=== PATIENT | female | born 1995 ===

== ENCOUNTER 2022-10-07 15:07 | Inpatient (IN) | payer BC, OTHER ==
[2022-10-07] MEDS ORDERED: Lidocaine 1% 50 ML MDV INJECT PRN (15:34)
[2022-10-07] MEDS ORDERED: Nalbuphine 10 MG/0.5 ML Syringe IVPUSH PRN (15:34)
[2022-10-07] MEDS ORDERED: Oxytocin/Lactated Ringers 10 UNIT/1,000 ML BAG IV SCH ×2 (15:45)
[2022-10-07 16:12] LABS: BASOPHILS ABSOLUTE AUTO 0.02 K/mm3 (0.01-0.08); BASOPHILS PERCENT AUTO 0.1 % (0.1-1.2); EOSINOPHILS ABSOLUTE AUTO 0.01 K/mm3 (0.04-0.36); EOSINOPHILS PERCENT AUTO 0.1 (0.7-5.8); HEMOGLOBIN 11.2 gm/dl (11.2-15.7); IMMATURE GRAN ABSOLUTE AUTO 0.07 K/mm3 (0.00-0.10); IMMATURE GRAN PERCENT AUTO 0.5 % (<=1.0); LYMPHOCYTES ABSOLUTE AUTO 2.07 K/mm3 (1.18-3.74); LYMPHOCYTES PERCENT AUTO 14.1 % (19.3-51.7); MEAN CORPUSCULAR HGB CONC 31.1 g/dl (32.2-35.5); MEAN CORPUSCULAR VOLUME 80.4 fl (79.4-94.8); MEAN PLATELET VOLUME 11.3 fl (9.4-12.3); MONOCYTES PERCENT AUTO 6.1 % (4.7-12.5); NEUTROPHILS ABSOLUTE AUTO 11.63 K/mm3 (1.56-6.13); NEUTROPHILS PERCENT AUTO 79.1 % (34.0-71.1); PLATELET COUNT,PLT 303 K/mm3 (182-369); RED BLOOD CELL COUNT 4.48 M/mm3 (3.98-5.22)
[2022-10-07] MEDS ORDERED: Misoprostol 25 MCG (1/4 of 100 MCG) Tab VAG SCH (17:00)
[2022-10-07] MEDS: Misoprostol 25 MCG (1/4 of 100 MCG) Tab VAG SCH ×2 (18:42→20:24)
[2022-10-08] MEDS: Misoprostol 25 MCG (1/4 of 100 MCG) Tab VAG SCH ×2 (00:28→04:16)
[2022-10-08] MEDS ORDERED: Misoprostol 25 MCG (1/4 of 100 MCG) Tab ONE (04:16)
[2022-10-08] MEDS ORDERED: Misoprostol 100 MCG Tab ONE (04:30)
[2022-10-08] MEDS: Lactated Ringers 1,000 ML IV SCH ×2 (11:02→17:02)
[2022-10-08] MEDS ORDERED: Witch Hazel Medicated Pads 40/Jar TOP PRN (18:34)
[2022-10-08] MEDS ORDERED: Ibuprofen 600 MG Tab PO PRN (18:34)
[2022-10-08] MEDS ORDERED: Acetaminophen 325 MG Tab PO PRN (18:34)
[2022-10-08] MEDS ORDERED: Benzocaine/Menthol 20%-0.5% Spray 78 GM Cannister TOP PRN (18:34)
== END 2022-10-09 19:10 | disposition home or self-care (01) | DRG 560 ==
LOC: JD.OB 15:07 → OBSVTOIN 10-08 17:23 → JD.OB 10-08 17:24
PROVIDERS: ADMIT Family Medicine; ATTEND Family Medicine
PROC: 10E0XZZ Delivery of Products of Conception, External Approach (ICD-10-PCS; principal; 2022-10-08)
PROC: 3E0P7VZ Introduction of Hormone into Female Reproductive, Via Natural or Artificial Opening (ICD-10-PCS; 2022-10-08)
PROC: 0KQM0ZZ Repair Perineum Muscle, Open Approach (ICD-10-PCS; 2022-10-08)
PROC: 3E033VJ Introduction of Other Hormone into Peripheral Vein, Percutaneous Approach (ICD-10-PCS; 2022-10-08)
PROC: 3E0334Z Introduction of Serum, Toxoid and Vaccine into Peripheral Vein, Percutaneous Approach (ICD-10-PCS; 2022-10-08)
DX: O48.0 Post-term pregnancy (principal); O69.81X0 Labor and delivery complicated by cord around neck, without compression, not applicable or unspecified; O70.1 Second degree perineal laceration during delivery; O26.893 Other specified pregnancy related conditions, third trimester; O42.02 Full-term premature rupture of membranes, onset of labor within 24 hours of rupture; Z37.0 Single live birth; Z3A.41 41 weeks gestation of pregnancy; Z67.11 Type A blood, Rh negative
CPT/HCPCS: 36415; 36430; 59025; 59409; 85025; 85461; 86592; 86762; 86850; 86900; 86901; A9270-GY; J2001; J2590; J2790; J7120